=== PATIENT | male | born 1990 | race Caucasian/White ===

== ENCOUNTER 2021-10-20 10:44 | Outpatient (CLI) | payer OTHER ==
[~2021-10-20 10:44] MED LIST: Magnevist 469MG/ML 20 ML VIAL ONE
== END 2021-10-20 10:45 | disposition home or self-care (01) ==
LOC: CSHMRI 10:44
PROVIDERS: ATTEND Physician Assistant Medical
DX: K52.9 Noninfective gastroenteritis and colitis, unspecified (principal)
CPT/HCPCS: 74183